=== PATIENT | male | born 1985 | race Caucasian/White ===

== ENCOUNTER 2025-06-11 05:59 | Emergency (ER) | payer BC, OTHER ==
[~2025-06-11] VITALS: Ht 175.3 cm; Wt 90.7 kg
[2025-06-11] MEDS: NITROGLYCERIN 0.4 MG/TAB BOTTLE SL ONE (06:38)
[2025-06-11] MEDS ORDERED: NITROGLYCERIN 0.4 MG/TAB BOTTLE ONE (06:38)
[2025-06-11] MEDS: ASPIRIN 325 MG TABLET PO ONE (06:38)
[2025-06-11] MEDS ORDERED: ASPIRIN 325 MG TABLET ONE (06:38)
[2025-06-11 06:42] LABS: PLATELET COUNT (AUTO) 305 K/uL (150-450); RED BLOOD CELL COUNT(AUTO) 5.33 MIL/uL (4.5-6.0); RED CELL DISTRIBUTION WIDTH 13.1 % (11.5-15.0); WHITE BLOOD COUNT (AUTO) 11.3 K/uL (4.3-11.0)
[2025-06-11 06:49] LABS: CALCIUM, SERUM 9.0 mg/dL (8.5-10.1); CREATININE 1.0 mg/dL (0.6-1.3); SODIUM SERUM 142 mmol/L (136-145); UREA NITROGEN, BLOOD 14 mg/dL (7-18)
[2025-06-11] MEDS ORDERED: IBUP-1957 PO (10:09)
[2025-06-11] MEDS ORDERED: KETOROLAC TROMETHAMINE 15 MG/ML VIAL ONE (10:55)
[2025-06-11] MEDS: KETOROLAC TROMETHAMINE 15 MG/ML VIAL IV ONE (11:00)
[2025-06-11 11:26] VITALS: BP 126/85; TEMP 98.1; O2SAT 99
== END 2025-06-11 11:27 | disposition home or self-care (01) ==
LOC: ER 05:59
DX: R07.89 Other chest pain (principal); R00.0 Tachycardia, unspecified; R06.02 Shortness of breath; F41.0 Panic disorder [episodic paroxysmal anxiety]; K21.9 Gastro-esophageal reflux disease without esophagitis
CPT/HCPCS: 99285; 96374; 71045; 93005 ×2; 85025; 80048; 85378; 36415; 84484 ×2; J1885